=== PATIENT | male | born 1970 | race Caucasian/White ===

== ENCOUNTER 2020-08-12 19:31 | Emergency (ER) | payer BC ==
[~2020-08-12] VITALS: Ht 157.5 cm; Wt 72.6 kg
[2020-08-12 19:44] VITALS: BP 114/69
[2020-08-12 20:51] LABS: BASOPHILS # (AUTO) 0.1 K/uL (0.0-0.2); BASOPHILS % (AUTO) 1.1 % (0.0-2.0); EOSINOPHILS % (AUTO) 5.2 % (0.0-6.0); HEMATOCRIT 40 % (39-51); HEMOGLOBIN 13.7 g/dL (13.5-17.5); LYMPHOCYTES # (AUTO) 1.6 K/uL (0.8-4.8); LYMPHOCYTES % (AUTO) 23.9 % (20.0-44.0); MEAN CORPUSCULAR HGB CONC 34 g/dl (31.0-36.0); MEAN CORPUSCULAR VOLUME 96 fL (80-96); MONOCYTES # (AUTO) 0.7 K/uL (0.1-1.30); NEUTROPHILS % (AUTO) 58.8 % (43.0-81.0); PLATELET COUNT (AUTO) 337 K/uL (150-450); WHITE BLOOD COUNT (AUTO) 6.8 K/uL (4.3-11.0)
[2020-08-12 20:59] LABS: CREATININE 0.7 mg/dL (0.6-1.3); POTASSIUM 4.1 mmol/L (3.5-5.1)
[2020-08-12] MEDS ORDERED: LIDOCAINE 2%-EPI 1:100,000 30 ML VIAL ONE (21:13)
[2020-08-12] MEDS ORDERED: LIDOCAINE 1% INJ 50 ML MDV IJ ONE (21:30)
== END 2020-08-12 21:52 | disposition home or self-care (01) ==
LOC: EDBD 19:34 → ER 19:34
DX: K91.841 Postprocedural hemorrhage of a digestive system organ or structure following other procedure (principal); K61.0 Anal abscess; I10 Essential (primary) hypertension; F41.9 Anxiety disorder, unspecified
CPT/HCPCS: 36415; 80048; 85025; 99283; A6253; J3490